=== PATIENT | female | born 1990 | race American Indian/Alaskan Native ===

== ENCOUNTER 2016-07-28 10:22 | Emergency (ER) | payer SELFPAY ==
[2016-07-28 10:33] VITALS: BP 145/92
[2016-07-28] MEDS ORDERED: TORADOL IM ONE (14:04)
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
[2016-07-28 14:11] LABS: Urine Drugs of Abuse Note Disclamer
--- NOTE | 2016-07-28 14:34 | XRay Report ---
CERVICAL SPINE, 3 views: History: Neck pain. Findings: The vertebral bodies, disk spaces, posterior elements and prevertebral soft tissues are unremarkable. Early degenerative disc disease at C5-6 is noted. The dens is intact. No acute fracture or malalignment is identified. Impression: 1. No evidence for acute injury to the cervical spine.
== END 2016-07-28 15:22 | disposition home or self-care (01) ==
LOC: ED 10:22
DX: M54.2 Cervicalgia (principal); V87.7XXA Person injured in collision between other specified motor vehicles (traffic), initial encounter; Y93.89 Activity, other specified; Y99.9 Unspecified external cause status; Y92.410 Unspecified street and highway as the place of occurrence of the external cause
CPT/HCPCS: 72040; 80307; 96372; 99283; J1885